=== PATIENT | female | born 1960 | race American Indian/Alaskan Native ===

== ENCOUNTER 2017-04-09 02:33 | Inpatient (IN) | payer MEDICARE ==
[~2017-04-09] VITALS: Ht 160 cm; Wt 90.3 kg
[~2017-04-09 02:33] MED LIST: ACEBUTCAFT PO; ALBU90OI INH; ALBUIS INH; ALPR1 PO; AMLO10 PO; AMLO5 PO; ASPI81CH PO; Ativan1 MG PO; BACITO TP; BENZ100A PO; BUSP10 PO; CETI10 PO; CIPR500 PO; CLON.2 PO; CLON2 PO; CODGUAEL PO; CYCL10 PO; Crutch1 EACH MISC; DEXT30SU PO; DIPH25 PO; DIPH50 PO; DOXY100 PO; DULO60 PO; EPIN.3I IM; ESCI20 PO; FAMO20 PO; FAMO40 PO; FLUO10 PO; FLUSAL2505 IH; FLUSAL5005 IH; FLUT.05NI; Flonase 0.05% N16 GM; GABA100 PO; GABA300 PO; HYDHCL25; HYDPAM50 PO; IBUP600 PO; IBUP800 PO; LEVFLO500 PO; LEVO750 PO; LISHYD2025 PO; LISI20 PO; LISI5 PO; LORA.5 PO; LORA1 PO; LORA10 PO; LORA10ER PO; LORA2 PO; METH10 PO; METO25ER PO; NAPR500 PO; NORT10 PO; NORT75 PO; OMEP20ER PO; ONDA4 PO; OXYACE5T PO; OXYC5 PO; PRAM.125 PO; PRAMIPEXOLE D0.25 MG PO; PRAZ1 PO; PRED10 PO; PRED20; PRED20 PO; PROCODE120 PO; Prednisone20 MG PO; Prozac40 MG PO; QUET25 PO; RXLORA1 PO; RXTRAM50 PO; SERT100 PO; SUCR1 PO; SUMA25 PO; TIOT18 IH; TIOT18 PO; TIOTROPIUM; TIZA4 PO; TRAM50 PO; Vistaril25 MG PO; ZESTORETIC 20-121 EA PO; Zofran Odt8 MG SL
[2017-04-09 03:23] LABS: BASOPHILS ABSOLUTE AUTO 0.04 K/mm3 (0.00-0.23); BASOPHILS PERCENT AUTO 0 % (0-2); EOSINOPHILS ABSOLUTE AUTO 0.24 K/mm3 (0.00-0.68); EOSINOPHILS PERCENT AUTO 2 % (0-6); Hematocrit 39.9 % (33.0-51.0); Hemoglobin 13.2 g/dL (11.5-16.0); IMMATURE GRAN ABSOLUTE AUTO 0.08 K/mm3 (0.00-0.10); IMMATURE GRAN PERCENT AUTO 1 % (0-1); LYMPHOCYTES ABSOLUTE AUTO 3.65 K/mm3 (0.84-5.20); LYMPHOCYTES PERCENT AUTO 34 % (21-46); MONOCYTES ABSOLUTE AUTO 1.43 K/mm3 (0.16-1.47); MONOCYTES PERCENT AUTO 13 % (4-13); Mean Corpuscular HGB 30.3 pg (26.0-34.0); Mean Corpuscular HGB Conc 33.1 g/dL (31.5-36.5); Mean Corpuscular Volume 92 fL (80-100); Mean Platelet Volume 9.3 fL (9.1-12.4); NEUTROPHILS ABSOLUTE AUTO 5.29 K/mm3 (1.96-9.15); NEUTROPHILS PERCENT AUTO 49 % (41-73); Platelet Count 283 K/mm3 (150-400); RDW Coefficient Variation 15.5 % (11.7-14.2); RDW Standard Deviation 52.4 fL (35.1-46.3); Red Blood Cell Count 4.35 M/mm3 (3.80-5.20); White Blood Cell Count 10.73 K/mm3 (4.00-11.30)
[2017-04-09 03:37] LABS: Alanine Aminotransfer (ALT/SGP 31 U/L (12-78); Albumin, Blood 3.4 g/dL (3.4-5.0); Albumin/Globulin Ratio 0.8 (0.8-1.8); Alk Phos 82 U/L (50-136); Anion Gap 9 mmol/L (6-16); Aspartate Aminotrans (AST/SGOT 25 U/L (12-37); Bilirubin, Total 0.7 mg/dL (0.1-1.0); Blood Urea Nitrogen 16 mg/dL (8-24); Bun/Creatinine Ratio 20.2 (12.0-20.0); CO2, Blood 23 mmol/L (21-32); Calcium, Blood 8.5 mg/dL (8.5-10.1); Chloride, Blood 104 mmol/L (98-108); Creatinine, Blood 0.79 mg/dL (0.40-1.00); Globulin, Blood 4.2 g/dL (2.2-4.0); Glomerular Filtration Rate >60 (60-); Glucose, Blood 120 mg/dL (70-99); Potassium, Blood 4.1 mmol/L (3.5-5.5); Sodium, Blood 136 mmol/L (136-145); Total Protein, Blood 7.6 g/dL (6.4-8.2); Troponin I <0.015 ng/mL (0.000-0.040)
[2017-04-09 05:08] LABS: Influenza A Negative (NEGATIVE); Influenza B Negative (NEGATIVE)
[2017-04-10 05:36] LABS: BASOPHILS PERCENT AUTO 0 % (0-2); EOSINOPHILS PERCENT AUTO 0 % (0-6); Hematocrit 35.6 % (33.0-51.0); Hemoglobin 11.7 g/dL (11.5-16.0); IMMATURE GRAN ABSOLUTE AUTO 0.03 K/mm3 (0.00-0.10); IMMATURE GRAN PERCENT AUTO 0 % (0-1); LYMPHOCYTES ABSOLUTE AUTO 0.71 K/mm3 (0.84-5.20); LYMPHOCYTES PERCENT AUTO 9 % (21-46); MONOCYTES ABSOLUTE AUTO 0.29 K/mm3 (0.16-1.47); MONOCYTES PERCENT AUTO 4 % (4-13); Mean Corpuscular HGB 29.3 pg (26.0-34.0); Mean Corpuscular HGB Conc 32.9 g/dL (31.5-36.5); Mean Platelet Volume 9.3 fL (9.1-12.4); NEUTROPHILS ABSOLUTE AUTO 6.57 K/mm3 (1.96-9.15); NEUTROPHILS PERCENT AUTO 87 % (41-73); Platelet Count 269 K/mm3 (150-400); RDW Coefficient Variation 15.2 % (11.7-14.2); RDW Standard Deviation 50.1 fL (35.1-46.3); Red Blood Cell Count 3.99 M/mm3 (3.80-5.20)
[2017-04-10 05:39] LABS: Mean Corpuscular Volume 89 fL (80-100)
[2017-04-10 06:00] LABS: Albumin, Blood 2.9 g/dL (3.4-5.0); Anion Gap 8 mmol/L (6-16); Blood Urea Nitrogen 23 mg/dL (8-24); Bun/Creatinine Ratio 34.5 (12.0-20.0); CO2, Blood 25 mmol/L (21-32); Calcium, Blood 8.8 mg/dL (8.5-10.1); Chloride, Blood 106 mmol/L (98-108); Creatinine, Blood 0.67 mg/dL (0.40-1.00); Glomerular Filtration Rate >60 (60-); Glucose, Blood 247 mg/dL (70-99); Phosphorus, Blood 3.9 mg/dL (2.5-4.9); Potassium, Blood 4.1 mmol/L (3.5-5.5); Sodium, Blood 139 mmol/L (136-145)
[2017-04-11] MEDS ORDERED: OXYC5 PO (12:36)
[2017-04-14] MEDS ORDERED: BENZ100A PO (11:10)
[2017-04-14] MEDS ORDERED: ALPR.5 PO (11:11)
[2017-04-14] MEDS ORDERED: GUAI600T33 PO (11:12)
[2017-04-14] MEDS ORDERED: IBUP400 PO (11:12)
[2017-04-14] MEDS ORDERED: ALBU3IS INH (11:13)
[2017-04-14] MEDS ORDERED: LIDO700A20 TOP (11:14)
[2017-04-14] MEDS ORDERED: Ventolin5 MG/1 ML INH (11:15)
[2017-04-14] MEDS ORDERED: LEVO750 PO (11:15)
[2017-04-14] MEDS ORDERED: PRED20 PO (11:16)
== END 2017-04-14 13:43 | disposition home or self-care (01) | DRG 194 ==
LOC: ER 02:33 → MEDS 05:46 → ENPENDDIS 04-14 10:15 → MEDS 04-14 13:43
PROVIDERS: Emergency Medicine; Family Medicine
DX: J18.9 Pneumonia, unspecified organism (principal); J44.0 Chronic obstructive pulmonary disease with (acute) lower respiratory infection; G62.9 Polyneuropathy, unspecified; J44.1 Chronic obstructive pulmonary disease with (acute) exacerbation; F43.10 Post-traumatic stress disorder, unspecified; F41.9 Anxiety disorder, unspecified; M06.9 Rheumatoid arthritis, unspecified; M79.7 Fibromyalgia; R07.81 Pleurodynia; R73.9 Hyperglycemia, unspecified; T38.0X5A Adverse effect of glucocorticoids and synthetic analogues, initial encounter; G89.29 Other chronic pain; Z63.4 Disappearance and death of family member; Z87.891 Personal history of nicotine dependence; Z79.82 Long term (current) use of aspirin; Z79.899 Other long term (current) drug therapy; Z88.8 Allergy status to other drugs, medicaments and biological substances; Z91.030 Bee allergy status; Z91.041 Radiographic dye allergy status
CPT/HCPCS: 36415; 71045; 80053; 80069; 83036; 83605; 83880; 84484; 85025; 87040; 87804; 93005; 93010; 94640; 94644; 94667; 94668; 94760; 96361; 96365; 96375; 97162; 97530; 99285; C1751; G8978; G8979; J1170; J1650; J1885; J1956; J2060; J2270; J2405; J2920; J2930; J3010; J3475; J7030

== ENCOUNTER → 2017-06-09 | Outpatient (CLI) | payer MEDICARE ==
[~2017-06-09] MED LIST changes: +ALBU3IS INH; +ALPR.5 PO; +GUAI600T33 PO; +IBUP400 PO; +LIDO700A20 TOP; +Ventolin5 MG/1 ML INH; +Vistaril50 MG PO; +Zofran8 MG PO
== END | disposition home or self-care (01) ==
LOC: OLS 11:14
DX: J18.9 Pneumonia, unspecified organism (principal)
CPT/HCPCS: 87070; 87205

== ENCOUNTER 2017-06-21 11:11 | Emergency (ER) | payer MEDICARE ==
[~2017-06-21] VITALS: Ht 162.6 cm; Wt 79.4 kg
[~2017-06-21 11:11] MED LIST changes: -Vistaril50 MG PO; -Zofran8 MG PO
[2017-06-21 12:20] LABS: BASOPHILS ABSOLUTE AUTO 0.05 K/mm3 (0.00-0.23); BASOPHILS PERCENT AUTO 1 % (0-2); EOSINOPHILS ABSOLUTE AUTO 0.23 K/mm3 (0.00-0.68); EOSINOPHILS PERCENT AUTO 4 % (0-6); Hematocrit 43.8 % (33.0-51.0); IMMATURE GRAN PERCENT AUTO 0 % (0-1); LYMPHOCYTES ABSOLUTE AUTO 2.48 K/mm3 (0.84-5.20); LYMPHOCYTES PERCENT AUTO 48 % (21-46); MONOCYTES ABSOLUTE AUTO 0.56 K/mm3 (0.16-1.47); MONOCYTES PERCENT AUTO 11 % (4-13); Mean Corpuscular HGB 28.4 pg (26.0-34.0); Mean Corpuscular Volume 89 fL (80-100); Mean Platelet Volume 10.3 fL (9.1-12.4); NEUTROPHILS ABSOLUTE AUTO 1.86 K/mm3 (1.96-9.15); NEUTROPHILS PERCENT AUTO 36 % (41-73); Platelet Count 202 K/mm3 (150-400); RDW Coefficient Variation 12.4 % (11.7-14.2); RDW Standard Deviation 40.8 fL (35.1-46.3); Red Blood Cell Count 4.93 M/mm3 (3.80-5.20); White Blood Cell Count 5.18 K/mm3 (4.00-11.30)
[2017-06-21 12:40] LABS: Alanine Aminotransfer (ALT/SGP 36 U/L (12-78); Albumin, Blood 3.7 g/dL (3.4-5.0); Albumin/Globulin Ratio 0.9 (0.8-1.8); Alk Phos 91 U/L (50-136); Anion Gap 8 mmol/L (6-16); Aspartate Aminotrans (AST/SGOT 36 U/L (12-37); Bilirubin, Total 0.3 mg/dL (0.1-1.0); Blood Urea Nitrogen 19 mg/dL (8-24); Bun/Creatinine Ratio 21.6 (12.0-20.0); CO2, Blood 22 mmol/L (21-32); Calcium, Blood 8.9 mg/dL (8.5-10.1); Chloride, Blood 105 mmol/L (98-108); Creatinine, Blood 0.88 mg/dL (0.40-1.00); Glomerular Filtration Rate >60 (60-); Glucose, Blood 103 mg/dL (70-99); Potassium, Blood 4.6 mmol/L (3.5-5.5); Sodium, Blood 135 mmol/L (136-145); Total Protein, Blood 7.7 g/dL (6.4-8.2); Troponin I <0.015 ng/mL (0.000-0.040)
== END 2017-06-21 16:40 | disposition home or self-care (01) ==
LOC: ER 11:11
PROVIDERS: Emergency Medicine
DX: R07.9 Chest pain, unspecified (principal); M79.604 Pain in right leg; M79.605 Pain in left leg; Z91.030 Bee allergy status; Z88.5 Allergy status to narcotic agent; Z88.8 Allergy status to other drugs, medicaments and biological substances; Z79.899 Other long term (current) drug therapy; Z79.82 Long term (current) use of aspirin; J44.9 Chronic obstructive pulmonary disease, unspecified; F43.10 Post-traumatic stress disorder, unspecified; G43.909 Migraine, unspecified, not intractable, without status migrainosus; F41.9 Anxiety disorder, unspecified; Z87.891 Personal history of nicotine dependence
CPT/HCPCS: 36415; 71046; 80053; 83880; 84484; 85025; 93005; 93010; 93970; 94640; 99284

== ENCOUNTER 2017-07-03 16:54 | Emergency (ER) | payer MEDICARE ==
[~2017-07-03] VITALS: Ht 162.6 cm; Wt 81.7 kg
[2017-07-03 17:44] LABS: BASOPHILS ABSOLUTE AUTO 0.05 K/mm3 (0.00-0.23); BASOPHILS PERCENT AUTO 1 % (0-2); EOSINOPHILS ABSOLUTE AUTO 0.25 K/mm3 (0.00-0.68); EOSINOPHILS PERCENT AUTO 3 % (0-6); Hemoglobin 13.9 g/dL (11.5-16.0); IMMATURE GRAN ABSOLUTE AUTO 0.02 K/mm3 (0.00-0.10); IMMATURE GRAN PERCENT AUTO 0 % (0-1); LYMPHOCYTES ABSOLUTE AUTO 4.65 K/mm3 (0.84-5.20); LYMPHOCYTES PERCENT AUTO 47 % (21-46); MONOCYTES PERCENT AUTO 15 % (4-13); Mean Corpuscular HGB Conc 33.1 g/dL (31.5-36.5); Mean Platelet Volume 10.1 fL (9.1-12.4); NEUTROPHILS ABSOLUTE AUTO 3.52 K/mm3 (1.96-9.15); NEUTROPHILS PERCENT AUTO 35 % (41-73); Platelet Count 287 K/mm3 (150-400); RDW Coefficient Variation 12.7 % (11.7-14.2); RDW Standard Deviation 38.5 fL (35.1-46.3); Red Blood Cell Count 4.97 M/mm3 (3.80-5.20); White Blood Cell Count 9.99 K/mm3 (4.00-11.30)
[2017-07-03 17:46] LABS: Mean Corpuscular Volume 85 fL (80-100)
[2017-07-03 18:01] LABS: Albumin, Blood 4.4 g/dL (3.4-5.0); Albumin/Globulin Ratio 1.1 (0.8-1.8); Bilirubin, Total 0.7 mg/dL (0.1-1.0); Bun/Creatinine Ratio 20.4 (12.0-20.0); Calcium, Blood 9.1 mg/dL (8.5-10.1); Creatinine, Blood 1.52 mg/dL (0.40-1.00); Globulin, Blood 3.9 g/dL (2.2-4.0); Magnesium, Blood 2.1 mg/dL (1.6-2.4); Potassium, Blood 3.4 mmol/L (3.5-5.5); Total Protein, Blood 8.3 g/dL (6.4-8.2)
[2017-07-03 19:13] LABS: Base Excess Venous -5.2 mmol/L; Bicarbonate Venous 20.7 mmol/L (24.0-30.0); PCO2 Venous 34.6 mmHg (38-42); PO2 Venous 95.1 mmHg (38-42); pH Blood Venous 7.37 (7.34-7.37)
[2017-07-03 20:50] LABS: Calcium, Ionized (POC) 1.07 mmol/L (1.10-1.46); Chloride (POC) 108 mmol/L (98-108); Creatinine (POC) 1.3 mg/dL (0.6-1.0); Glucose (ISTAT POC) 106 mg/dL (70-99); Hemoglobin (POC) 11.2 g/dL (12.0-16.0); Potassium (POC) 3.1 mmol/L (3.5-5.5); Sodium (POC) 141 mmol/L (135-148); Total CO2 (POC) 20 mmol/L (21-32)
[2017-07-03] MEDS ORDERED: Zofran8 MG PO (21:02)
[2017-07-03] MEDS ORDERED: Vistaril50 MG PO (21:02)
== END 2017-07-03 21:15 | disposition home or self-care (01) ==
LOC: ER 16:54
PROVIDERS: Emergency Medicine
DX: G62.9 Polyneuropathy, unspecified (principal); G43.909 Migraine, unspecified, not intractable, without status migrainosus; F41.9 Anxiety disorder, unspecified; Z87.891 Personal history of nicotine dependence; Z88.5 Allergy status to narcotic agent; Z88.8 Allergy status to other drugs, medicaments and biological substances; Z79.82 Long term (current) use of aspirin; Z79.51 Long term (current) use of inhaled steroids; Z79.899 Other long term (current) drug therapy
CPT/HCPCS: 36415; 80047; 80053; 82803; 83735; 85014; 85025; 96361; 96374; 96375; 99283; J2060; J2405; J7030; J7120